=== PATIENT | female | born 2000 | race Caucasian/White ===

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

== ENCOUNTER 2019-02-07 20:52 | Emergency (ER) | payer SELFPAY ==
[~2019-02-07] VITALS: Ht 165.1 cm; Wt 75.3 kg
[~2019-02-07 20:52] MED LIST changes: +IBUP800T48 PO; +PHEN-538 PO
[2019-02-07 21:20] VITALS: BP 108/59; PULSE 86; RESP 18; Ht 165.1 cm; Wt 75.3 kg
== END 2019-02-07 23:00 | disposition left against medical advice (07) ==
LOC: FTE 20:52
DX: Z53.21 Procedure and treatment not carried out due to patient leaving prior to being seen by health care provider (principal)

== ENCOUNTER 2019-06-04 23:38 | Outpatient (CLI) | payer OTHER ==
[~2019-06-04] VITALS: Ht 165.1 cm; Wt 79.3 kg
[2019-06-05 00:21] VITALS: Ht 165.1 cm; Wt 79.3 kg
[2019-06-05 00:22] VITALS: BP 120/58; PULSE 89; RESP 18
[2019-06-05] MEDS ORDERED: LACTATED RINGER'S 1,000 ML IV ONE (01:00)
[2019-06-05] MEDS ORDERED: ACETAMINOPHEN 1000MG/100ML IV 100 ML IVPB ONE (01:00)
[2019-06-05] MEDS ORDERED: SOD CHLORIDE 0.9% 1,000 ML IV SCH (02:30)
[2019-06-05] MEDS ORDERED: CEFTRIAXONE 2 GM/50 ML (PMX) 50 ML IVPB ONE (02:30)
[2019-06-05] MEDS ORDERED: HYDROCODONE/APAP (5/325) TAB PO ONE (02:30)
[2019-06-05] MEDS ORDERED: CEFTRIAXONE 2 GM INJ IM ONE (02:30)
--- NOTE | 2019-06-05 03:12 | PN ---
Triage Information Date/Time June 05, 2019 Reason for visit: Abd/pelvic pain Weeks of Gestation 27w 2d /Para 3/1 Diabetes: none Hypertention: none Additional information Pt c/o dysuria, lower abdominal and back pain. No fever or chills. +FM. PMHx: elevated LFT's, per pt. PSHx: none. NKDA Objective Vital Signs Date Temp Pulse Resp B/P (MAP) Pulse Ox O2 O2 Flow FiO2 Time Delivery Rate 06/05/19 97.8 89 18 120/58 Room Air 00:22 (78) Intake and Output 06/04/19 06/04/19 06/05/19 1515:00 23:00 07:00 IntakeIntake Total 1100 ml BalanceBalance 1100 ml Heart Rate: 140's Heart Rate Comments Accels to 170 BPM. No decels. Contractions: None Results/Medications Result Diagram: 06/05/19 0010 Results 24 hrs Laboratory Tests Test 06/05/19 00:00 06/05/19 00:10 Urine Color ADAM Urine Clarity CLOUDY A Urine pH 6.0 Urine Specific [place] 1.034 H Urine Ketones TRACE A Urine Nitrite NEGATIVE Urine Bilirubin 1+ H Urine Urobilinogen 1+ H Urine Leukocyte Esterase 3+ H Urine Microscopic RBC 57 H Urine Microscopic WBC 129 H Urine Squamous Epithelial Cells MODERATE Urine Calcium Oxalate Crystals MANY A Urine Bacteria FEW A Urine Mucus MANY A Urine Yeast (Budding) MODERATE A Urine Hemoglobin NEGATIVE Urine Glucose NEGATIVE Urine Total Protein 1+ H White Blood Count 10.4 # Red Blood Count 3.19 L Hemoglobin 9.8 #L Hematocrit 29.6 L Mean Corpuscular Volume 92.8 Mean Corpuscular Hemoglobin 30.7 Mean Corpuscular Hemoglobin Concent 33.1 Red Cell Distribution Width 13.8 Platelet Count 228 Mean Platelet Volume 9.6 Immature Granulocytes % 1.000 H Neutrophils % 73.6 Lymphocytes % 19.9 Monocytes % 4.5 Eosinophils % 0.6 Basophils % 0.4 Nucleated Red Blood Cells % 0.0 Immature Granulocytes # 0.100 H Neutrophils # 7.7 H Lymphocytes # 2.1 Monocytes # 0.5 Eosinophils # 0.1 Basophils # 0.0 Nucleated Red Blood Cells # 0.0 Medications Current Medications Sodium Chloride 1,000 ml @ 125 mls/hr Q8H IV Last administered on 06/05/19at 02:21; Admin Dose 125 MLS/HR; Start 06/05/19 at 02:30 Imaging Results Cervical length 4 cm EFW 1169 grams. Disposition: Discharge Assessment/Plan A: IUP at 27w 2d. UTI. Lower abdominal pain, resolved. P: IV hydration. Rocephin 2 grams IV x 1. IV Tylenol 1 gram. [place] 5/325 x 1. FLORINDA RUST MD Jun 05, 2019 03:12
--- NOTE | 2019-06-05 04:04 | TRIAGE ---
OB Triage Datetime Report Generated by CPN: 06/05/2019 04:03 Datetime: 06/05/2019 03:06 Pain Assessment Pain Scale: 0 Pain Presence: None/Denies Pain Type: N/A Datetime: 06/05/2019 03:01 Labor Evaluation Frequency: X0 Monitor Mode: External Duration (sec)2399: X0 Pattern: Normal: <= 5 Contractions in 10 Minutes Resting Tone [place]: Relaxed Heart Rate FHR Baseline Rate: 145 Monitor Mode: External US Variability: Moderate 6-25 bpm Accelerations: 15X15 Decelerations: None Category: Category I Datetime: 06/05/2019 02:31 Labor Evaluation Frequency: X0 Monitor Mode: External Duration (sec)2399: X0 Pattern: Normal: <= 5 Contractions in 10 Minutes Resting Tone [place]: Relaxed Heart Rate FHR Baseline Rate: 140 Monitor Mode: External US Variability: Moderate 6-25 bpm Accelerations: 15X15 Decelerations: None Category: Category I Datetime: 06/05/2019 01:46 Stage of : OB Triage Labor Evaluation Frequency: IRRITABILITY Monitor Mode: External Duration (sec)2399: 30 Pattern: Normal: <= 5 Contractions in 10 Minutes Resting Tone [place]: Relaxed Heart Rate FHR Baseline Rate: 135 Monitor Mode: External US Variability: Moderate 6-25 bpm Accelerations: 15X15 Decelerations: None Category: Category I Datetime: 06/05/2019 01:30 Pain Assessment Pain Scale: 7 Pain Presence: Constant Pain Type: Cramping; Dull Pain Location: Abdomen; Back Datetime: 06/05/2019 00:40 Stage of : OB Triage Labor Evaluation Frequency: X0 Monitor Mode: External Duration (sec)2399: X0 Pattern: Normal: <= 5 Contractions in 10 Minutes Resting Tone [place]: Relaxed Heart Rate FHR Baseline Rate: 125 Monitor Mode: External US Variability: Moderate 6-25 bpm Accelerations: 15X15 Decelerations: None Category: Category I Datetime: 06/05/2019 00:26 Arrived By: Wheelchair Arrived From: Home Chief Complaint: SEVERE ABDOMINAL AND BACK PAIN BURNING SENSATION WHEN URINATING Movement: Present Contractions: Denies/Absent Rupture of Membranes: Denies Vaginal Bleeding: None Vaginal Discharge: Denies Recent Sexual Intercouse: Denies Abdominal Trauma: Not Applicable Patient Complaints: Back Pain; Other Time Provider Notified: 06/05/2019 00:40 Provider Notified: DR. RUST Initial Plan: EFM, CALL OB Datetime: 06/05/2019 00:05 Stage of : OB Triage Maternal Assessment Level of Consciousness: Keenly Alert, Responsive DTR's/Clonus: DTRs 2+; No Clonus Headache: Denies Blurred Vision: No Respiratory Effort: Unlabored; Regular Rhythm; Equal Expansion Breath Sounds, Left: Clear and Equal Breath Sounds, Right: Clear and Equal Nausea/Vomiting: Denies RUQ Epigastric Pain: Denies Lower Extremities Edema: None Degree: None Upper Extremities Edema: None Degree: None Facial Edema: None Temperature Route: Oral Fall Risk Assessment History of Falling: (0) No Secondary Diagnosis: (0) No Ambulatory Aid: (0) Bedrest/Nurse Assist IV Therapy: (0) No Gait: (0) Normal/Bedrest/Immobile Mental Status: (0) Oriented to Own Ability Fall Score: 0 Fall Risk Score Definition: No Risk: No action required Pain Assessment Pain Scale: 10 Pain Presence: Constant Pain Type: Burning; Cramping; Dull; Pressure Pain Location: Abdomen; Back
== END 2019-06-05 03:24 | disposition home or self-care (01) ==
LOC: OBT 23:38 → L-D 23:38 → OBT 06-05 03:24
PROVIDERS: ATTEND Obstetrics & Gynecology
DX: O23.42 Unspecified infection of urinary tract in pregnancy, second trimester (principal); O26.892 Other specified pregnancy related conditions, second trimester; R10.30 Lower abdominal pain, unspecified; Z3A.27 27 weeks gestation of pregnancy
CPT/HCPCS: 36415; 76815; 76817; 81001; 85025; 87086; 96360; 96361; 96365; 96368; J0131; J0696; J7030; J7120; Z7500; Z7610; G0463

== ENCOUNTER 2019-06-06 08:45 | Inpatient (IN) | payer OTHER ==
[~2019-06-06] VITALS: Ht 165.1 cm; Wt 81.0 kg
[2019-06-06 09:17] VITALS: Ht 165.1 cm; Wt 81.0 kg
[2019-06-06 09:18] VITALS: BP 104/53; PULSE 71; RESP 18
[2019-06-06] MEDS ORDERED: MAGNESIUM CITRATE 300 ML BTL PO ONE (16:30)
--- NOTE | 2019-06-06 17:20 | HP ---
Date/Time of Note Date/Time of Note DATE: 06/06/19 TIME: 17:01 OB - History Hx of Present Free Text/Dictation 19 y.o. A1 with an IUP at 27w 3d and c/o abdominal pain present since the end of march and worse x 2 days. The pt went to [facility] 04/20 for what she describes as the same pain, was given IV pain meds and sent home.The pain then was 6/10. She was better x 1 day and then the pain returned and has been present ever since. She goes for care but has not seen her doctor since the end of March, only the charter boat captain in the clinic. She was here 2 days ago and evaluation of the urine appeared dirty so she was given IV hydration and IV Rocephin and sent home with a Rx for Macrobid feeling better. She is back now saying all is worse. She has not had any nausea or vomiting. She has an appet ite. She had a BM this AM, a small amount and it was soft. PMHx: Pt describes either hemorrhoids or a rectal prolapse that she has had since her baby.No h/o acid reflux. PSHx: Tonsillectomy. TAB after her first baby. NKDA. Estimated Due Date: Sep 02, 2019 : 3 Para: 1 Therapeutic : 1 Care: Limited Care Ultrasounds: Normal mid trimester US Medical Complications: None Past Family/Social History * Past Medical, Surgical, Family and Obstetric Histories reviewed with pt as her records are not available. Blood Type: Unknown Rubella: unknown RPR/VDRL: Unknown GBS Status: Unknown HBsAG: Unknown OB Admission Exam Vital Signs Vital Signs Vital Signs Date Temp Pulse Resp B/P (MAP) Pulse Ox O2 O2 Flow FiO2 Time Delivery Rate 06/06/19 98.1 71 18 104/53 Room Air 09:18 (70) Physical Exam HEENT: WNL Heart: Rhythm Normal Lungs: Clear Abdomen: Abnormal Extremities: Normal Reflexes: Normal Membranes: Intact Heart Rate: 150's Decelerations: No Decelerations Varibility: Marked Contractions on Admission: None Last 72 hours Lab Results CBC & BMP 06/06/19 10:20 Liver Function Test 06/06/19 10:20 Alanine Aminotransferase (ALT/SGPT) 20 Albumin 3.1 L Alkaline Phosphatase 85 Aspartate Amino Transf (AST/SGOT) 19 Direct Bilirubin 0.00 Total Protein 6.2 OB Assessment/Plan Other Assessment: Abdominal pain. Constipation. Rule out appendicitis. Other plan: Pt's WBC is 7.5. On abdominal US the appendix could not be visulaized. On MRI, which I reviewed with the radiologist the appendix could not be seen but there is no free fluid and no other signs of inflammation. There was a question of a right ureteral stone but on review with the radiologist both kidneys and ureters appeared remarkably symmetrical and no stone specifically seen. There a was a large amount of stool everywhere and most prominently in the the right, lower q uadrant. Pt was given a bottle of magnesium citrate and a dose of Maalox. She will be given IV hydration. I do not feel comfortable sending her home so am admitting for observation. If after passing a much larger amount of stool and she does not feel better could repeat the MRI and hope to at least be able to see the appendix. Will allow food for now as this pt has had the pain for 6+ weeks, albeit a chronic appendicitis could be a possibility. FLORINDA RUST MD Jun 06, 2019 17:11
--- NOTE | 2019-06-06 17:21 | TRIAGE ---
OB Triage Datetime Report Generated by CPN: 06/06/2019 17:20 Datetime: 06/06/2019 14:22 Maternal Assessment Level of Consciousness: Keenly Alert, Responsive DTR's/Clonus: DTRs 2+ Headache: Denies Blurred Vision: No Nausea/Vomiting: Denies RUQ Epigastric Pain: Denies Facial Edema: None Labor Evaluation Frequency: NONE Pattern: Normal: <= 5 Contractions in 10 Minutes Resting Tone [place]: Relaxed Heart Rate FHR Baseline Rate: 140 Monitor Mode: External US FHR Baseline Changes: No Baseline Change Variability: Moderate 6-25 bpm Decelerations: None Category: Category I Pain Assessment Pain Scale: 7 Pain Presence: Chronic Pain Type: Ache Pain Location: Abdomen; Back Pain Goal: 1 Vaginal Exam Membrane Status: Intact Datetime: 06/06/2019 13:44 Maternal Assessment Level of Consciousness: Keenly Alert, Responsive DTR's/Clonus: DTRs 2+ Headache: Denies Blurred Vision: No Nausea/Vomiting: Denies RUQ Epigastric Pain: Denies Facial Edema: None Labor Evaluation Frequency: NONE Pattern: Normal: <= 5 Contractions in 10 Minutes Resting Tone [place]: Relaxed Heart Rate FHR Baseline Rate: 130 Monitor Mode: External US FHR Baseline Changes: No Baseline Change Variability: Moderate 6-25 bpm Accelerations: 15X15 Decelerations: None Category: Category I Pain Assessment Pain Scale: 7 Pain Presence: Constant Pain Type: Ache Pain Location: Abdomen; Back Pain Goal: 2 Vaginal Exam Membrane Status: Intact Datetime: 06/06/2019 13:22 Maternal Assessment Level of Consciousness: Keenly Alert, Responsive DTR's/Clonus: DTRs 2+ Headache: Denies Blurred Vision: No Nausea/Vomiting: Denies RUQ Epigastric Pain: Denies Facial Edema: None Pattern: Normal: <= 5 Contractions in 10 Minutes Resting Tone [place]: Relaxed Heart Rate FHR Baseline Rate: 140 Monitor Mode: External US FHR Baseline Changes: No Baseline Change Variability: Moderate 6-25 bpm Accelerations: 15X15 Decelerations: None Category: Category I Pain Assessment Pain Scale: 7 Pain Presence: Constant Pain Type: Ache Pain Location: Abdomen; Back Pain Goal: 2 Vaginal Exam Membrane Status: Intact Datetime: 06/06/2019 10:59 Maternal Assessment Level of Consciousness: Keenly Alert, Responsive DTR's/Clonus: DTRs 2+ Headache: Denies Blurred Vision: No Nausea/Vomiting: Denies RUQ Epigastric Pain: Denies Facial Edema: None Labor Evaluation Frequency: NONE Pattern: Normal: <= 5 Contractions in 10 Minutes Resting Tone [place]: Non Relaxed Heart Rate FHR Baseline Rate: 140 Monitor Mode: External US FHR Baseline Changes: No Baseline Change Variability: Moderate 6-25 bpm Accelerations: 15X15 Decelerations: None Category: Category I Pain Assessment Pain Scale: 7 Pain Presence: Constant Pain Type: Ache Pain Location: Abdomen; Back Pain Goal: 1 Vaginal Exam Membrane Status: Intact Datetime: 06/06/2019 09:13 Time of Arrival: 06/06/2019 08:35 EGA: 27.3 Arrived By: Ambulatory Arrived From: Home Chief Complaint: LOWER ABD PAIN AND BACK PAIN SINCE SATURDAY Movement: Present Rupture of Membranes: Denies Vaginal Bleeding: None Vaginal Discharge: Denies Recent Sexual Intercouse: Denies Abdominal Trauma: Not Applicable Patient Complaints: Other Time Provider Notified: 06/06/2019 09:13 Provider Notified: DR RUST Initial Plan: EFM,CALL DR RUST Maternal Assessment Level of Consciousness: Keenly Alert, Responsive DTR's/Clonus: DTRs 2+; No Clonus Headache: Denies Blurred Vision: No Respiratory Effort: Unlabored; Regular Rhythm; Equal Expansion Breath Sounds, Left: Clear and Equal Breath Sounds, Right: Clear and Equal Nausea/Vomiting: Denies RUQ Epigastric Pain: Denies Facial Edema: None Temperature Route: Axillary Fall Risk Assessment History of Falling: (0) No Secondary Diagnosis: (0) No Ambulatory Aid: (0) Bedrest/Nurse Assist IV Therapy: (0) No Gait: (0) Normal/Bedrest/Immobile Mental Status: (0) Oriented to Own Ability Fall Score: 0 Fall Risk Score Definition: No Risk: No action required Datetime: 06/06/2019 09:09 Maternal Assessment Level of Consciousness: Keenly Alert, Responsive DTR's/Clonus: DTRs 2+ Headache: Denies Blurred Vision: No Nausea/Vomiting: Denies RUQ Epigastric Pain: Denies Facial Edema: None Labor Evaluation Frequency: NONE Monitor Mode: External Pattern: Normal: <= 5 Contractions in 10 Minutes Resting Tone [place]: Relaxed Heart Rate FHR Baseline Rate: 140 Monitor Mode: External US FHR Baseline Changes: No Baseline Change Variability: Moderate 6-25 bpm Accelerations: 15X15 Decelerations: None Category: Category I Pain Assessment Pain Scale: 8 Pain Presence: Constant Pain Location: Abdomen; Back Vaginal Exam Membrane Status: Intact Datetime: 06/05/2019 00:05 Fall Score: 0 Fall Risk Score Definition: No Risk: No action required
[2019-06-06] MEDS ORDERED: AL HYDROX/MG HYDROX/SIMETH 30 ML CUP PO ONE (17:30)
[2019-06-06] MEDS: ACETAMINOPHEN 325 MG TAB PO PRN ×2 (17:36→23:26)
[2019-06-06] MEDS: LACTATED RINGER'S 1,000 ML IV SCH ×2 (17:37→19:45)
[2019-06-07] MEDS: LACTATED RINGER'S 1,000 ML IV SCH ×3 (03:58→20:05)
[2019-06-07] MEDS: ACETAMINOPHEN 325 MG TAB PO PRN ×2 (09:19→20:05)
--- NOTE | 2019-06-07 12:31 | QN ---
Documentation Comment Antepartum 27 +wks GA with lower abdominal and back pain patient is feeling the same NST reassuring [place] No CTXs Pelvic Deferred Gen NAD Abd soft NT ND No CVA tenderness --->Observation JACI ROSE M.D. Jun 07, 2019 12:31
[2019-06-07] MEDS: DOCUSATE SODIUM 100 MG CAP PO SCH (21:14)
[2019-06-08] MEDS: LACTATED RINGER'S 1,000 ML IV SCH ×3 (03:49→20:08)
[2019-06-08] MEDS: PRENATAL VITAMIN PO SCH (09:16)
[2019-06-08] MEDS: DOCUSATE SODIUM 100 MG CAP PO SCH ×2 (09:16→20:46)
[2019-06-08] MEDS ORDERED: CYCLOBENZAPRINE 10 MG TAB PO ONE (10:30)
--- NOTE | 2019-06-08 10:57 | PN ---
Date/Time of Note Date/Time of Note DATE: 06/08/19 TIME: 10:56 OB Subjective Subjective Subjective 19-year-old abdominal pain and back pain. +BM. Pain noted at McBurney's point Ultrasound and MRI do not show visualization of the appendix She was counseled on possible CT imaging to rule out appendicitis We will obtain a surgery consult Flexeril 10 mg p.o. tablet x1 Electronic monitor reassuring tocometer no contractions labs reviewed. Assessment/plan: 1. Abdominal painsurgery consult pending. Patient has been given information regarding CT imaging and by acog and she has been counseled. Should she proceed forward with a CT, she will require a consent per radiology. She has been counseled that growth restriction, microcephaly and intellectual disability are most common adverse effects from high-dose radiation exposure. risks of anomalies, growth restriction or have not been reported with radiation exposures of less than 50 mGy. There is a small risk of leukemia. CT of the abdomen may have an estimated radiation exposure of 1.3 to 35 mGy. Risk of carcinogenesis is unclear but may be very small. A 10-20 mGy may increase the risk of leukemia by a factor of 1.5-2 over a background rate of approximately 1 and 3000 maternal benefit may outwegith the risks. no fev ers, no leukocytosis. 2. Back pain-Flexeril 3. Anemia of -ferrous sulfate GABRIELLE BOOTHE MD Jun 08, 2019 10:57
[2019-06-08] MEDS: FERROUS SULFATE (EC) 325 MG TAB PO SCH (11:43)
[2019-06-08] MEDS ORDERED: FLUCONAZOLE 150 MG TAB PO ONE (20:30)
[2019-06-08] MEDS ORDERED: MAGNESIUM CITRATE 300 ML BTL PO ONE (20:30)
--- NOTE | 2019-06-08 23:50 | QN ---
Documentation Comment F/u Note: Went and spoke to the pt as she has been here since Saturday w/o reslution. The original plane was to clean out her bowels and then, if she still had pain to repeat the MRI. She was given Magnesium Citrate but only passed a little bit of stool. Will repeat the Magnesium Citrate now and the pt can have another MRI in the AM if more seems to have passed. A surgical consult was ordered today but the doctor was never called so will proceed with the original plan. FLORINDA RUST MD Jun 08, 2019 23:50
[2019-06-09] MEDS: LACTATED RINGER'S 1,000 ML IV SCH ×2 (03:10→11:20)
[2019-06-09] MEDS: FERROUS SULFATE (EC) 325 MG TAB PO SCH (09:09)
[2019-06-09] MEDS: PRENATAL VITAMIN PO SCH (09:09)
[2019-06-09] MEDS: DOCUSATE SODIUM 100 MG CAP PO SCH (09:09)
--- NOTE | 2019-06-09 16:52 | CONS ---
Assessment/Plan Assessment/Plan Assessment/Plan (Daily) Clinically this patient does not have acute appendicitis and appears to be improving. There are no surgical recommendations at this point other than to need observation and monitoring as necessary. Likely the patient can be discharged tomorrow morning Consultation Date/Type/Reason Admit Date/Time Jun 06, 2019 at 16:45 Date of Consultation: Jun 09, 2019 Type of Consult General surgery Reason for Consultation Right lower quadrant abdominal pain with possible appendicitis Date/Time of Note DATE: 06/09/19 TIME: 16:49 Hx of Present Illness Patient is a 19-year-old female who is 27 weeks . She was admitted 3 days ago with right lower quadrant abdominal pain. MRI was nondiagnostic for appendicitis. Abdominal ultrasound did not visualize an appendix. Her white count was normal at the time. This morning her white count was repeated and remains normal without left shift. Patient states that her symptoms are improving although this morning she had slight anorexia with back pain. She has had no fevers or chills. Review of systems HEENT: Unremarkable Pulmonary: No history of asthma, pneumonia or shortness of breath Cardiac: No history of chest pain, NC or arrhythmia Abdomen: As in the HPI : As in the HPI Past Medical History Medical History: no pertinent history Home Meds Discontinued Scripts Ibuprofen* (Motrin*) 800 Mg Tab, 800 MG PO Q8 PRN for PAIN, #20 TAB Prov:ADELA YARBROUGH 07/19/17 Phenazopyridine Hcl* (Pyridium*) 200 Mg Tab, 200 MG PO TID PRN for URINARY PAIN, #6 TAB Prov:ADELA YARBROUGH 07/19/17 Cephalexin* (Keflex*) 500 Mg Capsule, 500 MG PO QID for 5 Days, CAP Prov:DENI SCHNEIDER PA-C 11/16/16 Medications Current Medications Lactated Ringer's 1,000 ml @ 125 mls/hr Q8H IV Last administered on 06/09/19at 11:20; Admin Dose 125 MLS/HR; Start 06/06/19 at 17:30 Acetaminophen (Tylenol Tab) 650 mg Q6H PRN PO .PAIN OR TEMP Last administered on 06/07/19at 20:05; Admin Dose 650 MG; Start 06/06/19 at 17:30 Prenat Multivit/ Application Engineer/Iron/Folic Ac () 1 tab DAILY PO Last administered on 06/09/19at 09:09; Admin Dose 1 TAB; Start 06/08/19 at 09:00 Docusate Sodium (Colace) 100 mg BID PO Last administered on 06/09/19at 09:09; Admin Dose 100 MG; Start 06/07/19 at 21:00 Ferrous Sulfate (Ferrous Sulfate (Ec)) 325 mg DAILY PO Last administered on 06/09/19at 09:09; Admin Dose 325 MG; Start 06/08/19 at 11:00 Allergies: Coded Allergies: No Known Drug Allergy (Verified Allergy, Unknown, 06/05/19) Past Surgical History Past Surgical Hx: no surgical history Family History Significant Family History: no pertinent family hx Social History Alcohol Use: none Smoking Status: Never smoker Exam/Review of Systems Exam Vitals Vital Signs Date Temp Pulse Resp B/P (MAP) Pulse Ox O2 O2 Flow FiO2 Time Delivery Rate 06/06/19 98.1 71 18 104/53 Room Air 09:18 (70) Intake and Output 06/08/19 06/08/19 06/09/19 1515:00 23:00 07:00 IntakeIntake Total 1320 ml 1800 ml 1000 ml OutputOutput Total 600 ml 1600 ml 400 ml BalanceBalance 720 ml 200 ml 600 ml Constitutional: alert, oriented Psych: no complaints Eyes: nl conjunctiva ENMT: nl external ears & nose Neck: supple Respiratory: clear to auscultation Cardiovascular: regular rate and rhythm Gastrointestinal: soft (Entirely nontender) Genitourinary - Female: other (Gravid uterus) Neurological: LABORATORY ASST II-XII intact Results Result Diagram: 06/09/19 0922 06/06/19 1020 Results 24hrs Laboratory Tests Test 06/09/19 09:22 White Blood Count 9.3 # Red Blood Count 3.64 L Hemoglobin 11.1 L Hematocrit 35.2 L Mean Corpuscular Volume 96.7 Mean Corpuscular Hemoglobin 30.5 Mean Corpuscular Hemoglobin Concent 31.5 L Red Cell Distribution Width 13.9 Platelet Count 195 Mean Platelet Volume 9.8 Immature Granulocytes % 1.100 H Neutrophils % 72.5 Lymphocytes % 23.1 Monocytes % 2.7 Eosinophils % 0.4 Basophils % 0.2 Nucleated Red Blood Cells % 0.0 Immature Granulocytes # 0.100 H Neutrophils # 6.7 Lymphocytes # 2.1 Monocytes # 0.3 Eosinophils # 0.0 Basophils # 0.0 Nucleated Red Blood Cells # 0.0 Medications Medication Current Medications Lactated Ringer's 1,000 ml @ 125 mls/hr Q8H IV Last administered on 06/09/19 11:20; Admin Dose 125 MLS/HR; Start 06/06/19 at 17:30 Acetaminophen (Tylenol Tab) 650 mg Q6H PRN PO .PAIN OR TEMP Last administered on 06/07/19 20:05; Admin Dose 650 MG; Start 06/06/19 at 17:30 Prenat Multivit/ Application Engineer/Iron/Folic Ac () 1 tab DAILY PO Last administered on 06/09/19 09:09; Admin Dose 1 TAB; Start 06/08/19 at 09:00 Docusate Sodium (Colace) 100 mg BID PO Last administered on 06/09/19 09:09; Admin Dose 100 MG; Start 06/07/19 at 21:00 Ferrous Sulfate (Ferrous Sulfate (Ec)) 325 mg DAILY PO Last administered on 09:09; Admin Dose 325 MG; Start 06/08/19 at 11:00 CHANDANA VIRGEN MD Jun 09, 2019 16:52
--- NOTE | 2019-06-09 17:00 | QN ---
Documentation Comment Antepartum 27 +wks GA feels i,mproved she had bowel movements General surgeon saw her and cleared her from surgical point of view NST reassuring Intercourse No CTXs Pelvic Deferred Gen NAD Abd soft NT ND No CVA tenderness --->Discharge with precautions if BPP and CXL are WNL --->Questions answered --->F/u n 1 wk in the clinic JACI ROSE M.D. Jun 09, 2019 17:00
--- NOTE | 2019-06-09 17:01 | DS ---
Date/Time of Note Date/Time of Note DATE: 06/09/19 TIME: 17:01 Discharge Summary Admission/Discharge Info Admit Date/Time Jun 06, 2019 at 16:45 Discharge Date/Time 06/09/2019 Discharge Diagnosis Constipation Abdominal pain Patient Condition: Good Hospital Course uneventful Home Meds Discontinued Scripts Ibuprofen* (Motrin*) 800 Mg Tab, 800 MG PO Q8 PRN for PAIN, #20 TAB Prov:PASILABANADELA F 07/19/17 Phenazopyridine Hcl* (Pyridium*) 200 Mg Tab, 200 MG PO TID PRN for URINARY PAIN, #6 TAB Prov:PASILABANEMMANUELLEAR F 07/19/17 Cephalexin* (Keflex*) 500 Mg Capsule, 500 MG PO QID for 5 Days, CAP Prov:DENI SCHNEIDER PA-C 11/16/16 Primary Care Provider Care Physician No Primary Pending Labs Laboratory Tests Test 06/09/19 09:22 White Blood Count 9.3 10^3/ul (4.8-10.8) Red Blood Count 3.64 10^6/ul (4.20-5.40) Hemoglobin 11.1 g/dl (12.0-16.0) Hematocrit 35.2 % (37.0-47.0) Mean Corpuscular Volume 96.7 fl (72.0-104.0) Mean Corpuscular Hemoglobin 30.5 pg (29.0-33.0) Mean Corpuscular Hemoglobin Concent 31.5 g/dl (32.0-37.0) Red Cell Distribution Width 13.9 % (11.5-14.5) Platelet Count 195 10^3/UL (140-415) Mean Platelet Volume 9.8 fl (7.4-10.4) Immature Granulocytes % 1.100 % (0.001-0.429) Neutrophils % 72.5 % (30.0-74.0) Lymphocytes % 23.1 % (18.0-55.0) Monocytes % 2.7 % (0.0-13.0) Eosinophils % 0.4 % (0.0-7.0) Basophils % 0.2 % (0.0-2.0) Nucleated Red Blood Cells % 0.0 /100WBC (0.0-0.0) Immature Granulocytes # 0.100 10^3/ul (0.0-0.031) Neutrophils # 6.7 10^3/ul (1.6-7.5) Lymphocytes # 2.1 10^3/ul (0.8-2.9) Monocytes # 0.3 10^3/ul (0.3-0.9) Eosinophils # 0.0 10^3/ul (0.0-0.5) Basophils # 0.0 10^3/ul (0.0-0.1) Nucleated Red Blood Cells # 0.0 10^3/ul (0.0-0.0) JACI ROSE M.D. Jun 09, 2019 17:01
== END 2019-06-09 18:41 | disposition home or self-care (01) | DRG 833 ==
LOC: OBT 08:45 → L-D 08:45 → OBT 16:45 → L-D 16:45
PROVIDERS: ADMIT Obstetrics & Gynecology; ATTEND Obstetrics & Gynecology
DX: O26.892 Other specified pregnancy related conditions, second trimester (principal); R10.9 Unspecified abdominal pain; K59.00 Constipation, unspecified; Z3A.27 27 weeks gestation of pregnancy
CPT/HCPCS: 74181; 76705; 76817; 76818; 80053; 80307; 81001; 85025; 87086; G0463; J7120

== ENCOUNTER 2019-06-15 18:10 | Outpatient (CLI) | payer OTHER ==
[~2019-06-15] VITALS: Ht 165.1 cm; Wt 78.1 kg
[~2019-06-15 18:10] MED LIST changes: -CEPH-443 PO; -IBUP800T48 PO; -PHEN-538 PO; +PNV11TAB PO
[2019-06-15 18:16] VITALS: BP 99/49; PULSE 77; RESP 20
[2019-06-15 18:20] VITALS: Ht 165.1 cm; Wt 78.1 kg
[2019-06-15] MEDS ORDERED: HYDROCODONE/APAP (5/325) TAB PO ONE (20:00)
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
== END 2019-06-15 21:30 | disposition home or self-care (01) ==
LOC: OBT 18:10 → L-D 18:13 → OBT 21:30
PROVIDERS: ATTEND Obstetrics & Gynecology
DX: O26.92 Pregnancy related conditions, unspecified, second trimester (principal); V43.52XA Car driver injured in collision with other type car in traffic accident, initial encounter; Y92.410 Unspecified street and highway as the place of occurrence of the external cause; Z3A.28 28 weeks gestation of pregnancy
CPT/HCPCS: 76818; 81001; 85025; 85049; 85610; 85670; 85730; 86850; 86900; 86901; Z7500; Z7610; G0463

== ENCOUNTER 2019-07-04 10:06 | Outpatient (CLI) | payer OTHER ==
[~2019-07-04] VITALS: Ht 165.1 cm; Wt 80.0 kg
[~2019-07-04 10:06] MED LIST changes: +NIFE10CA PO
[2019-07-04 11:13] VITALS: BP 108/51; PULSE 80; RESP 18; Ht 165.1 cm; Wt 80.0 kg
[2019-07-04] MEDS ORDERED: CEFTRIAXONE 1 GM INJ IM ONE (13:30)
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
--- NOTE | 2019-07-04 16:33 | PN ---
Triage Information Date/Time Reason for visit: Vaginal discharge Weeks of Gestation 19-year-old 3 para 1 at 31 weeks and 2 days of gestation with estimated date of delivery September 02, 2019 Patient presents with chief complaint of vaginal discharge She reports a history of urinary tract infection early in this Patient reports positive movement, denies vaginal bleeding and leaking fluid, denies uterine contractions /Para 3 para 1 Diabetes: none Hypertention: none Objective Vital Signs Date Temp Pulse Resp B/P (MAP) Pulse Ox O2 O2 Flow FiO2 Time Delivery Rate 07/04/19 98.0 80 18 108/51 11:13 (70) Heart Rate: 140's Heart Rate Comments heart rate tracing category 1 Contractions: None Results/Medications Results 24 hrs Laboratory Tests Test 07/04/19 11:25 Urine Color YELLOW Urine Clarity SLIGHTLY CLOUDY A Urine pH 8.0 Urine Specific [place] 1.021 Urine Ketones NEGATIVE Urine Nitrite NEGATIVE Urine Bilirubin NEGATIVE Urine Urobilinogen NEGATIVE Urine Leukocyte Esterase 3+ H Urine Microscopic RBC 14 H Urine Microscopic WBC 37 H Urine Squamous Epithelial Cells FEW Urine Bacteria FEW A Urine Mucus FEW A Urine Hemoglobin 2+ H Urine Glucose NEGATIVE Urine Total Protein NEGATIVE Fibronectin NEGATIVE Imaging Results PROCEDURE: US OB. CLINICAL INDICATION: Size and dates TECHNIQUE: Multiple sonographic images of the pelvis and gravid uterus were obtained. The images were reviewed on a PACS workstation. COMPARISON: US PELVIS 06/15/2019 FINDINGS: Gestation: Single live intrauterine gestation. Cardiac activity: 131 beats per minute. Presentation: Vertex. Placenta: Location: Anterior. Appearance: No previa or abruption. Measurements: BPD = 7.8 cm, 31 weeks and 1 day HC = 28.8 cm, 31 weeks and 5 days AC = 27.2 cm, 31 weeks and 2 days FL = 6.1 cm, 31 weeks and 4 days Gestational Age: AUA estimated gestational age: 31 weeks 3 days LMP estimated gestational age: 31 weeks 3 days AUA estimated date of delivery: 09/02/19 The EFW = 1761 g, 37%ile based on LMP age. RPTAT: AA IMPRESSION: Single live intrauterine gestation of 31 weeks 3 days by ultrasound criteria. .Lawrence Alexander MD, MD Date Time Electronically viewed and signed by .Lawrence Alexander MD, MD on 07/04/2019 11:58 .S/ CC: JACI ROSE M.D. [id number] PROCEDURE: US OB biophysical profile. Ultrasound cervix CLINICAL INDICATION: decreased movements, labor TECHNIQUE: Multiple sonographic images of the pelvis were obtained. In addition, transvaginal images of the cervix were obtained. The images were r eviewed on a PACS workstation. COMPARISON: 06/15/2019 FINDINGS: The cervix measures 4.1 cm in length. There is a single live intrauterine gestation. Cardiac activity is present with 132 beats per minute. There is a vertex presentation. The placenta is anterior. There is no evidence of placental abruption. ROWAN = 24.4 cm. Biophysical profile: movement 2/2 tone 2/2. breathing 2/2 ROWAN 2/2 Total 07/02 RPTAT: AA . IMPRESSION: Normal biophysical profile. Cervix measures 4.1 cm in length. Polyhydramnios. .Lawrence Alexadner MD, MD Date Time Electronically viewed and signed by .Lawrence Alexander MD, MD on 07/04/2019 11:57 .S/ CC: JACI ROSE M.D. [id number] Disposition: Discharge Assessment/Plan Urinalysis suggestive of urinary tract infection Urine culture was sent Patient received Rocephin x1 dose Prescription for Macrobid was given kick count instructions were given Labor precautions were given Patient instructed to follow-up with [facility] in 1 to 2 days DOT FLORES MD Jul 04, 2019 16:33
== END 2019-07-04 16:00 | disposition home or self-care (01) ==
LOC: OBT 10:06 → L-D 10:06 → OBT 16:00
PROVIDERS: ATTEND Obstetrics & Gynecology
DX: O23.43 Unspecified infection of urinary tract in pregnancy, third trimester (principal); Z3A.31 31 weeks gestation of pregnancy
CPT/HCPCS: 76815; 76817; 76818; 81001; 82731; 87086; J0696; Z7500; G0463

== ENCOUNTER 2019-07-09 21:44 | Outpatient (CLI) | payer OTHER ==
[~2019-07-09] VITALS: Ht 165.1 cm; Wt 81.8 kg
[2019-07-09 22:50] VITALS: BP 100/55; PULSE 74; RESP 15
[2019-07-10] MEDS ORDERED: TERBUTALINE 1 ML ONE (00:54)
[2019-07-10] MEDS ORDERED: TERBUTALINE 1 MG/ML INJ SC ONE (01:00)
--- NOTE | 2019-07-10 02:52 | PN ---
Triage Information Date/Time 07/10/19 Reason for visit: Vag spotting / bleeding (uterine contraction) Weeks of Gestation 32w1d /Para Diabetes: none Hypertention: none Additional information was on macrobid Objective Vital Signs Date Temp Pulse Resp B/P (MAP) Pulse Ox O2 O2 Flow FiO2 Time Delivery Rate 07/09/19 98.2 74 15 100/55 Room Air 22:50 (70) Heart Rate: 130's Heart Rate Comments CAT I Contractions: >10 Minutes Apart Exam FFN neg Results/Medications Results 24 hrs Laboratory Tests Test 07/09/19 23:10 Urine Color YELLOW Urine Clarity CLEAR Urine pH 7.0 Urine Specific [place] 1.012 Urine Ketones NEGATIVE Urine Nitrite NEGATIVE Urine Bilirubin NEGATIVE Urine Urobilinogen NEGATIVE Urine Leukocyte Esterase 2+ H Urine Microscopic RBC 4 Urine Microscopic WBC 12 H Urine Squamous Epithelial Cells FEW Urine Bacteria FEW A Urine Hemoglobin 1+ H Urine Glucose NEGATIVE Urine Total Protein NEGATIVE Fibronectin NEGATIVE Medications x1 terbutaline Imaging Results CVL 3.6 BPP 07/02 ROWAN 11.5 Disposition: Discharge Assessment/Plan A IUP 32w1d cystitis P discharge home wiith ampicillin (has allergic reaction to amoxicillin but only minor rash willing to take ampicillin since allergic reaction was minor rash OSVLADO BROOKE MD Jul 10, 2019 02:52
--- NOTE | 2019-07-10 05:16 | TRIAGE ---
OB Triage Datetime Report Generated by CPN: 07/10/2019 05:15 Datetime: 07/10/2019 01:53 Stage of : OB Triage Heart Rate FHR Baseline Rate: 140 Monitor Mode: External US FHR Baseline Changes: No Baseline Change Variability: Moderate 6-25 bpm Accelerations: 15X15 Decelerations: None Category: Category I Datetime: 07/10/2019 00:40 Stage of : OB Triage Heart Rate FHR Baseline Rate: 130 Monitor Mode: External US FHR Baseline Changes: No Baseline Change Variability: Moderate 6-25 bpm Accelerations: 15X15 Decelerations: None Category: Category I Datetime: 07/09/2019 23:58 Labor Evaluation Frequency: 2-8 Monitor Mode: External Duration (sec)2399: 20-40 Quality: Mild Pattern: Normal: <= 5 Contractions in 10 Minutes Resting Tone [place]: Relaxed Heart Rate FHR Baseline Rate: 130 Monitor Mode: External US FHR Baseline Changes: No Baseline Change Variability: Moderate 6-25 bpm Accelerations: 15X15 Decelerations: None Category: Category I Datetime: 07/09/2019 23:21 Stage of : OB Triage Datetime: 07/09/2019 22:59 Time of Arrival: 07/09/2019 21:37 EGA: 32.1 Arrived By: Wheelchair Arrived From: Home Chief Complaint: c/o spotting and occ cramping Movement: Present Contractions: Occasional Rupture of Membranes: Denies Vaginal Bleeding: Scant Vaginal Discharge: Present Recent Sexual Intercouse: Denies Abdominal Trauma: Not Applicable Patient Complaints: Cramping; Other Time Provider Notified: 07/09/2019 22:58 Provider Notified: Dr Hickey Initial Plan: EFM,FFN,CVL,BPP,UA.CULTURE Datetime: 07/09/2019 22:58 Stage of : OB Triage Monitor Mode: External Quality: Mild Pattern: Normal: <= 5 Contractions in 10 Minutes Resting Tone [place]: Relaxed Heart Rate FHR Baseline Rate: 130 Monitor Mode: External US FHR Baseline Changes: No Baseline Change Variability: Moderate 6-25 bpm Accelerations: 15X15 Decelerations: None Category: Category I Pain Presence: None/Denies Pain Type: N/A Datetime: 07/09/2019 22:14 Stage of : OB Triage Maternal Assessment Level of Consciousness: Keenly Alert, Responsive Headache: Denies Blurred Vision: No Respiratory Effort: Unlabored Nausea/Vomiting: Denies RUQ Epigastric Pain: Denies Facial Edema: None Monitor Mode: External Resting Tone [place]: Relaxed Heart Rate FHR Baseline Rate: 130 Monitor Mode: External US Pain Assessment Pain Scale: 4 Pain Presence: Intermittent Pain Type: Cramping Pain Location: Abdomen Datetime: 07/04/2019 11:04 Fall Risk Assessment Fall Score: 0 Fall Risk Score Definition: No Risk: No action required Datetime: 07/04/2019 11:02 EGA: 31.3 Datetime: 06/15/2019 18:06 Fall Risk Assessment Fall Score: 0 Fall Risk Score Definition: No Risk: No action required Datetime: 06/08/2019 20:09 Fall Risk Assessment Fall Score: 20 Fall Risk Score Definition: No Risk: No action required Datetime: 06/08/2019 08:07 Fall Risk Assessment Fall Score: 20 Fall Risk Score Definition: No Risk: No action required Datetime: 06/07/2019 20:00 Fall Risk Assessment Fall Score: 20 Fall Risk Score Definition: No Risk: No action required Datetime: 06/07/2019 07:51 Fall Risk Assessment Fall Score: 20 Fall Risk Score Definition: No Risk: No action required Datetime: 06/06/2019 19:32 Fall Risk Assessment Fall Score: 0 Fall Risk Score Definition: No Risk: No action required Datetime: 06/06/2019 17:18 Fall Risk Assessment Fall Score: 0 Fall Risk Score Definition: No Risk: No action required Datetime: 06/06/2019 09:13 EGA: 27.3 Fall Risk Assessment Fall Score: 0 Fall Risk Score Definition: No Risk: No action required Datetime: 06/05/2019 00:05 Fall Risk Assessment Fall Score: 0 Fall Risk Score Definition: No Risk: No action required
== END 2019-07-10 02:00 | disposition home or self-care (01) ==
LOC: OBT 21:44 → L-D 21:45 → OBT 07-10 02:00
PROVIDERS: ATTEND Obstetrics & Gynecology
DX: O62.9 Abnormality of forces of labor, unspecified (principal); O46.8X3 Other antepartum hemorrhage, third trimester; Z3A.32 32 weeks gestation of pregnancy
CPT/HCPCS: 76817; 76818; 81001; 82731; 87086; J3105; Z7500; G0463

== ENCOUNTER 2019-07-19 18:42 | Outpatient (CLI) | payer OTHER ==
[~2019-07-19] VITALS: Ht 165.1 cm; Wt 82.0 kg
[2019-07-19 18:56] VITALS: BP 94/54; PULSE 88; RESP 20; Ht 165.1 cm; Wt 82.0 kg
== END 2019-07-19 22:33 | disposition home or self-care (01) ==
LOC: OBT 18:42 → L-D 18:43 → OBT 22:33
PROVIDERS: ATTEND Obstetrics & Gynecology
DX: O47.03 False labor before 37 completed weeks of gestation, third trimester (principal); O09.213 Supervision of pregnancy with history of pre-term labor, third trimester; Z3A.33 33 weeks gestation of pregnancy
CPT/HCPCS: 76818; 82731; Z7500; G0463

== ENCOUNTER 2019-08-02 15:31 | Inpatient (IN) | payer OTHER ==
[~2019-08-02] VITALS: Ht 165.1 cm; Wt 81.0 kg
[~2019-08-02 15:31] MED LIST changes: +ACET325T33 PO; +ACET500C5 PO; +DOCU-159 PO; +HYDR-3609 PO
[2019-08-02 15:43] VITALS: Ht 165.1 cm; Wt 81.0 kg
[2019-08-02 15:44] VITALS: BP 99/53; PULSE 60; RESP 18
[2019-08-02] MEDS: LACTATED RINGER'S 1,000 ML IV SCH ×2 (16:16→17:57)
[2019-08-02] MEDS ORDERED: ONDANSETRON 4 MG INJ IV PRN (17:30)
[2019-08-02] MEDS ORDERED: DIPHENHYDRAMINE 25 MG CAP PO PRN (17:30)
[2019-08-02] MEDS ORDERED: TERBUTALINE 1 MG/ML INJ SC ONE (17:30)
[2019-08-02] MEDS ORDERED: AL HYDROX/MG HYDROX/SIMETH 30 ML CUP PO PRN (17:30)
[2019-08-02] MEDS: CLINDAMYCIN 900 MG (PMX) 50 ML IVPB SCH (17:52)
[2019-08-02] MEDS: BETAMET NA PHOS/AC (6 MG/ML) 2 ML INJ SYG IM SCH (18:20)
[2019-08-02] MEDS: morphine 2 MG INJ IV PRN (18:21)
[2019-08-02] MEDS: PRENATAL VITAMIN PO SCH (20:23)
[2019-08-02] MEDS: DOCUSATE SODIUM 100 MG CAP PO PRN (20:23)
[2019-08-02] MEDS: metroNIDAZOLE 500 MG/NS (PMX) 100 ML IVPB SCH (21:28)
[2019-08-03] MEDS: LACTATED RINGER'S 1,000 ML IV SCH ×3 (01:15→02:00)
[2019-08-03] MEDS: metroNIDAZOLE 500 MG/NS (PMX) 100 ML IVPB SCH (01:20)
[2019-08-03] MEDS: CLINDAMYCIN 900 MG (PMX) 50 ML IVPB SCH ×2 (02:00→09:40)
[2019-08-03] MEDS ORDERED: metroNIDAZOLE 500 MG/NS (PMX) 100 ML IVPB SCH (06:00)
[2019-08-03] MEDS: DOCUSATE SODIUM 100 MG CAP PO PRN (08:35)
[2019-08-03] MEDS: PRENATAL VITAMIN PO SCH (08:35)
[2019-08-03] MEDS: morphine 2 MG INJ IV PRN (08:36)
[2019-08-03] MEDS: BETAMET NA PHOS/AC (6 MG/ML) 2 ML INJ SYG IM SCH (13:19)
== END 2019-08-03 14:52 | disposition home or self-care (01) | DRG 833 ==
LOC: L-D 15:31 → OBT 15:31 → L-D 16:45
PROVIDERS: ADMIT Obstetrics & Gynecology; ATTEND Obstetrics & Gynecology
DX: O99.613 Diseases of the digestive system complicating pregnancy, third trimester (principal); Z3A.35 35 weeks gestation of pregnancy; O23.43 Unspecified infection of urinary tract in pregnancy, third trimester
CPT/HCPCS: 36415; 76705; 76815; 76818; 80053; 80307; 81001; 85025; 86900; 86901; 87086; G0463; J0702; J2270; J7120

== ENCOUNTER 2019-08-09 18:19 | Outpatient (CLI) | payer OTHER ==
[~2019-08-09] VITALS: Ht 165.1 cm; Wt 82.1 kg
[~2019-08-09 18:19] MED LIST changes: -NIFE10CA PO
[2019-08-09 19:15] VITALS: Ht 165.1 cm; Wt 82.1 kg
[2019-08-09 19:20] VITALS: BP 118/66; PULSE 99; RESP 18
== END 2019-08-09 21:55 | disposition home or self-care (01) ==
LOC: OBT 18:19 → L-D 18:19 → OBT 21:55
PROVIDERS: ATTEND Obstetrics & Gynecology
DX: O41.03X0 Oligohydramnios, third trimester, not applicable or unspecified (principal); Z3A.36 36 weeks gestation of pregnancy
CPT/HCPCS: 76818; 84112

== ENCOUNTER 2019-08-11 23:16 | Outpatient (CLI) | payer OTHER ==
[~2019-08-11] VITALS: Ht 165.1 cm; Wt 82.7 kg
[~2019-08-11 23:16] MED LIST changes: +NIFE10CA PO
[2019-08-11 23:33] VITALS: Ht 165.1 cm; Wt 82.7 kg
[2019-08-11 23:34] VITALS: BP 110/59; PULSE 71; RESP 18
== END 2019-08-12 02:27 | disposition home or self-care (01) ==
LOC: OBT 23:16 → L-D 23:19 → OBT 08-12 02:27
PROVIDERS: ATTEND Obstetrics & Gynecology
DX: O26.893 Other specified pregnancy related conditions, third trimester (principal); Z3A.37 37 weeks gestation of pregnancy; R52 Pain, unspecified; R68.83 Chills (without fever)
CPT/HCPCS: 76818; 80053; 85025; Z7500; G0463

== ENCOUNTER 2019-08-13 14:25 | Outpatient (CLI) | payer OTHER ==
[~2019-08-13] VITALS: Ht 165.1 cm; Wt 83.4 kg
[2019-08-13 14:33] VITALS: Ht 165.1 cm; Wt 83.4 kg
== END 2019-08-13 16:50 | disposition home or self-care (01) ==
LOC: OBT 14:25 → L-D 14:25 → OBT 16:50
PROVIDERS: ATTEND Obstetrics & Gynecology
DX: O62.9 Abnormality of forces of labor, unspecified (principal); Z3A.37 37 weeks gestation of pregnancy
CPT/HCPCS: 76815; 76818; G0463